=== PATIENT | female | born 1965 | race African-American/Black ===

== ENCOUNTER 2017-07-04 20:22 | Emergency (ER) | payer BC ==
[2017-07-04 22:00] LABS: HEMATOCRIT 25.8 % (36.0-48.0); HEMOGLOBIN 8.2 g/dL (12-16); MCH 25.2 pg (26.0-34.0); MCHC 31.8 g/dL (31.0-37.0); MCV 79.1 fL (80.0-100.0); MEAN PLATELET VOLUME 9.3 fL (7.4-10.4); PLATELET COUNT 259 10x3/uL (130-400); RBC 3.26 10x6/uL (4.00-5.40); RDW 17.3 % (11.5-14.5); WBC 49.1 10x3/uL (4.8-10.8)
[2017-07-04 22:13] LABS: ALBUMIN 3.3 g/dL (3.4-5.0); ALKALINE PHOSPHATASE 260 U/L (46-116); ALT (SGPT) 62 U/L (10-68); BILIRUBIN - TOTAL 0.32 mg/dL (0.2-1.3); CALC OSMOLALITY 278 mosm/kg (275-300); CALCIUM 9.8 mg/dL (8.5-10.1); CARBON DIOXIDE 26.4 mmol/L (21.0-32.0); CHLORIDE - SERUM 100 mmol/L (98-107); CREATININE - SERUM 0.8 mg/dL (0.6-1.3); GLUCOSE 208 mg/dL (74-106); POTASSIUM - SERUM 3.3 mmol/L (3.5-5.1); PROTEIN - SERUM 7.2 g/dL (6.4-8.2); SODIUM 137 mmol/L (136-145); UREA NITROGEN 10 mg/dL (7-18); eGFR NON AFRICAN AMERICAN 79 mL/min (90-120)
[2017-07-04 22:23] LABS: BASOPHILS 3 % (0-2); LYMPHOCYTES 13 % (15-50); MONOCYTES 5 % (2-11); NEUTROPHILS 75 % (40-80); PLATELET ESTIMATE NORMAL
[2017-07-05 00:06] LABS: CKMB 0.3 U/L (0.0-3.6); CREATINE KINASE 49 UL (21-215); PRO BNP 171 pg/mL (0-125); TROPONIN-I < 0.017 ng/mL (0.000-0.060)
[2017-07-05 00:20] LABS: APPEARANCE CLEAR (CLEAR); BILIRUBIN NEGATIVE (NEGATIVE); COLOR YELLOW (YELLOW); GLUCOSE NEGATIVE (NEGATIVE); KETONE NEGATIVE (NEGATIVE); NITRITE NEGATIVE (NEGATIVE); PROTEIN 1+ mg/dL (NEGATIVE); SPECIFIC GRAVITY 1.015 (1.005-1.020); UROBILINOGEN NORMAL (NORMAL)
[2017-07-05 00:21] LABS: WHITE CELLS - URINE 0-5 /hpf (0-5)
[2017-07-05 00:22] LABS: BACTERIA MODERATE /hpf (NONE SEEN); EPITHELIAL CELLS 0-5 /hpf (0-5); MUCUS <1+ /lpf (NONE SEEN); RED CELLS - URINE NONE SEEN /hpf (0-5)
== END 2017-07-05 03:10 | disposition home or self-care (01) ==
LOC: D.ER 20:22
PROVIDERS: Family Medicine
DX: J06.9 Acute upper respiratory infection, unspecified (principal); J20.9 Acute bronchitis, unspecified; N39.0 Urinary tract infection, site not specified; I10 Essential (primary) hypertension; E11.9 Type 2 diabetes mellitus without complications; Z85.3 Personal history of malignant neoplasm of breast

== ENCOUNTER → 2019-07-14 09:51 | Outpatient (CLI) | payer BC, OTHER ==
[~2019-07-14 09:51] MED LIST: JANUVIA100 MG PO; LEXAPRO20 MG PO; LISINOPRIL-HCT1 EAC7 PO; LOTREL 5-20 MG1 CAP PO; OXYBUTYNIN CHLOR5 MG PO
[2019-07-22 06:51] VITALS: BMI 29.6
== END | disposition home or self-care (01) ==
LOC: D.HCCARDIO 09:51
PROVIDERS: ATTEND Internal Medicine Cardiovascular Disease
DX: I20.9 Angina pectoris, unspecified (principal)

== ENCOUNTER 2019-07-22 06:12 | Outpatient (CLI) | payer BC, OTHER ==
[~2019-07-22] VITALS: Ht 175.3 cm; Wt 90.9 kg
--- NOTE | ~2019-07-22 | HEMODYNAMI ---
PATIENT:EDGAR GOMEZ MEDICAL RECORD: [id number] : 63 LOCATION:[facility] ADMISSION DATE: 07/22/19 Generatedon:07/22/20198:22 Patient name: EDGAR GOMEZ Patient #: [id number] SSN: [id number] : 1965 Date of study: 07/22/2019 Page: Of Hemodynamic Procedure Report Patient Data Patient Demographics Procedure consent was obtained First Name: EDGAR Gender: Female Last Name: PATRICIA : 1965 Middle Initial: GAGAN Age: 54 year(s) Patient #: [id number] Race: Black SSN: [id number] Additional ID: [id number] Contact details [address]: [address] [place] [address] State: [place] City: [place] Zip code: [address] Past Medical History Performed procedures and imaging results Date Procedure Procedure Results Comments 07/14/2019 Stress testing Positive->Intermediate ANTERIOR AND with SPECT MPI risk APICAL Allergies Allergen Reaction Date Comments Reported Other allergy 07/22/2019 DEMEROL, FLAGYL, PHENEGREN, REGLAN, SULFA Admission Admission Data Admission Date: 07/22/2019 Admission Time: 6:12 Arrival Date: 07/22/2019 Arrival Time: 0:00 Admit Source: Other Insurance Payor: Private health insurance [facility] #: [id number] Height (in.): 69 BSA: 2.07 (m2) Height (cm.): 175.26 BMI: 29.59 (kg/m2) Weight (lbs.): 200.4 Weight (kg.): 90.9 Lab Results Lab Result Date: 07/22/2019 Lab Result Time: 0:00 Biochemistry Name Units Result Min Max BUN mg/dl 11 --(-*--)-- 7 18 Creatinine mg/dl 0.8 --(-*--)-- 0.6 1.3 eGFR ml/min 90 --(*---)-- 90 120 AM CBC Name Units Result Min Max Hematocrit % 35.8 *-(----)-- 42 54 Hemoglobin g/dl 11.5 *-(----)-- 13.5 17.5 Procedure Procedure Types Cath Procedure Diagnostic Procedure [facility] w/Coronaries Sedation Charges Moderate Sedation up to 15 minutes Procedure Description Procedure Date Procedure Date: 07/22/2019 Procedure Start Time: 8:05 Procedure End Time: 8:18 Procedure Staff Name Function Anshul Smith MD Performing Physician Xi Li RT Monitor Asya Somers RT Scrub Jean Lafleur RN Nurse Adrianne Bennett RN Buffet Manager Indication Chest pain Procedure Data Cath Procedure Fluoroscopy Diagnostic fluoroscopy Total fluoroscopy Time: 1.7 time: 1.7 min min Diagnostic fluoroscopy Total fluoroscopy dose: 340 dose: 340 mGy mGy Contrast Material Contrast Material Type Amount (ml) Isovue 370 41 Entry Location Entry Primary Successful Side Size Upsize Upsize Entry Closure Succes sful Closure Location (Fr) 1 (Fr) 2 (Fr) Remarks Device Remarks Femoral Right 5 Fr Exoseal artery Estimated blood loss: 5 ml Diagnostic catheters Device Type Used For End Catheter Placement MULTIPACK JL 4.0 5Fr Procedure catheter MULTIPACK 3DRC 5Fr Procedure catheter MULTIPACK Pigtail 5 Fr Procedure catheter Procedure Complications No complications Procedure Medications Medication Administration Route Dosage Oxygen etCO2 Nasal cannula 2 l/min Lidocaine 2% added to field 20 Heparin Flush Bag added to field 2 bags (1000units/500ml NS) 0.9% NaCl I.V. 100 ml/hr Versed I.V. 1 mg Fentanyl I.V. 50 mcg Versed I.V. 1 mg Fentanyl I.V. 50 mcg Hemodynamics Rest BSA: 2.07 (m2) HGB: 11.5 (g/dl) O2 Consumption: Estimated: 200.03 (ml/min) O2 Co nsumption indexed: Estimated:96.63 (ml/min/m) Heart Rate: 71 (bpm) Pressure Samples Time Site Value (mmHg) Purpose Heart Use Rate(bpm) 8:14 LV 95/24,35 Snapshot 62 8:15 AO 126/64(88) Pullback 63 8:15 LV 126/1,13 Pullback 63 Gradients Valve Time Site 1 Site 2 Mean SEP/DFP Peak To Heart Use (mmHg) (sec/min) Peak Rate (mmHg) (bpm) Aortic 8:15 LV AO 10 15 0 63 126/1,13 126/64(88) Calculations Valve P-P Mean Valve Index Valve Source Name Gradient Area Flow (cm2) Aortic 0 10 0 10 Snapshots Pre Cath Intra NCS Post Cath Vital Signs Time Heart Resp SPO2 etCO2 NIBP (mmHg) Rhythm Pain Sedation Rate (ipm) (%) (mmHg) Status Level (bpm) 8:03:04 67 17 100 35.4 158/94(135) NSR 0 (11) 10(A) , No pain 8:07:20 60 13 100 0.7 141/80(112) NSR 0 (11) 10(A) , No pain 8:11:32 61 13 99 0.7 129/76(107) NSR 0 (11) 9(A) , No pain 8:15:44 62 13 98 1.5 133/77(90) NSR 0 (11) 9(A) , No pain 8:18:07 64 14 99 1.5 136/71(100) NSR 0 (11) 10(A) , No pain Medications Time Medication Route Dose Verified Delivered Reason Notes Effe ctiveness by by 8:01:01 Heparin Flush added 2 Anshul Anshul used for Bag to bags Luis Smith MD procedure (1000units/500ml field NS) 8:01:13 0.9% NaCl I.V. 100 Anshul Buffie used for ml/hr Luis Bennett graphic pre press trades worker 8:01:21 Oxygen etCO2 2 Anshul Buffie used for Nasal l/min Luis Bennett RN procedure cannula 8:01:55 Lidocaine 2% added 20ml Anshul Anshul for local to vial Luis Smith MD anesthetic field 8:04:19 Versed I.V. 1 mg Anshul Buffie for Luis Bennett RN sedation 8:04:27 Fentanyl I.V. 50 Anshul Buffie for mcg Luis Bennett RN sedation 8:09:15 Versed I.V. 1 mg Anshul Buffie for Luis Bennett RN sedation 8:09:19 Fentanyl I.V. 50 Anshul Buffie for mcg Luis Bennett RN sedation Procedure Log Time Note 7:19:10 Informed consent obtained and on chart 7:19:17 Arrival Date: 07/22/2019 12:00:00 AM 7:20:06 Admit Source: Other 7:20:10 Insurance Payor : Private health insurance 7:20:34 Patient Height : 69 inches 7:20:44 Patient Weight : 200.4 lbs 7:21:02 Diagnostic Cath Status : Elective 7:21:24 Indication : Chest pain 7:22:21 Patient allergic to Other allergyDEMEROL, FLAGYL, PHENEGREN, REGLAN, SULFA 7:50:28 Xi Li RT(R) sent for patient. Start room use. 8:01:01 Heparin Flush Bag (1000units/500ml NS) 2 bags added to field was administered by Anshul Smith MD; used for procedure; Verbal order read back and verified. 8:01:10 Lab Result : BUN 11 mg/dl 8::10 Lab Result : Creatinine 0.8 mg/dl 8::10 Lab Result : Hemoglobin 11.5 g/dl 8:01:10 Lab Result : eGFR AM 90 ml/min 8:01:10 Lab Result : Hematocrit 35.8 % 8:01:13 0.9% NaCl 100 ml/hr I.V. was administered by Adrianne Bennett RN; used for procedure; Verbal order read back and verified. 8:01:21 Oxygen 2 l/min etCO2 Nasal cannula was administered by Adrianne Bennett RN; used for procedure; Verbal order read back and verified. 8:01:22 H&P Date Dictated: 07/22/2019 Within 30 days and on chart.. 8:01:23 Pre-procedure instructions explained to patient. 8:01:23 Pre-op teaching completed and patient verbalized understanding. 8:01:40 Time tracking: Regular hours (M-F 7:00 - 5:00) 8:01:45 Plan of Care:Hemodynamics will remain stable., Cardiac rhythm will remain stable., Comfort level will be maintained., Respiratory function will remain adequate., Patient/ family verbilizes understanding of procedure., Procedure tolerated without complication., Recovers from procedure without complications.. 8:01:49 Procedure Status Elective Heart Cath (OP). 8:01:55 Lidocaine 2% 20ml vial added to field was administered by Anshul Smith MD; for local anesthetic; Verbal order read back and verified. 8:01:55 Patient received from Pre/Post Procedure Room to [facility] 2 Alert and oriented. Tansferred to table in Supine position. 8:01:58 Warm blankets applied, and stone hugger turned on for patient comfort. 8:01:58 Correct patient and procedure confirmed by team. 8:01:59 ECG and BP/O2 sat monitors applied to patient. 8:02:01 Vital chart was started 8:02:02 Full Disclosure recording started 8:02:05 Family in patients room. 8:02:07 Patient NPO since Midnight. 8:02:12 Is the patient allergic to Iodine/contrast media? No. 8:02:15 Was the patient premedicated? Yes 8:02:16 Is patient on blood thinner?No 8:02:25 Patient diabetic? Yes. 8:02:27 If diabetic: On Metformin? No 8:02:30 Patient not . Patient is over age 55. 8:02:31 ----Pre-sedation anethsthesia assessment.---- 8:02:33 Previous problem with sedation/anesthesia? No ? 8:02:35 Snore? Yes 8:02:36 Sleep apnea? No 8:02:38 Deviated septum? No 8:02:40 Opens mouth fully? Yes 8:02:41 Sticks out tongue? Yes 8:02:44 Airway obstruction? No ? 8:02:46 Dentures? No ? 8:02:51 Baseline sample Acquired. 8:02:54 Rhythm: sinus rhythm 8:03:00 Pre procedure: right dorsailis pedis pulse 2+ Normal; easily identifiable; not easily obliterated 8:03:02 Patient pain scale 0/10 ?. 8:03:14 IV patent on arrival in Lt subclavian with 0.9% NaCl at KVO. 8:03:18 Lab results completed and on chart. 8:03:28 Stress Test: yes; abnormal APICAL AND ANTERIOR 8:03:37 Risk of Mortality: .1 8:03:44 Risk of blood transfusion: 1.3 8:03:47 Risk of MONIQUE: .2 8:03:51 Right groin area was prepped with chlora-prep and draped in sterile fashion 8:03:52 Alarms reviewed by RZachary N. 8:03:52 Sharps counted by scrub and verified by R.N. 8:03:53 --------ALL STOP TIME OUT------ 8:03:54 Final Timeout: patient, procedure, and site verified with staff and physician. All members of the team are in agreement. 8:03:58 Right groin site verified by team. 8:04:00 Fire Safety Assessment: A--An alcohol-based skin anteseptic being used preoperatively., C--Open oxygen or nitrous oxide is being used., D--An ESU, laser, or fiber-optic light is being used. 8:04:03 Physical assessment completed. ASA score P 2 - A patient with mild systemic disease as per Anshul Smith MD. 8:04:06 1) 90+ Normal kidney functon but urine findings or structural abnormalities or genetic trait point to kidney disease. 8:04:07 Maximum allowable contrast dose (3.7 X eGFR X 0.75)250 ml. 8:04:13 Sedation plan: IV Moderate Sedation Medication:Versed, Fentanyl 8:04:17 Procedure started. 8:04:19 Versed 1 mg I.V. was administered by Adrianne Bennett RN; for sedation; Verbal order read back and verified. 8:04:27 Fentanyl 50 mcg I.V. was administered by Adrianne Bennett RN; for sedation; Verbal order read back and verified. 8:05:51 Local anesthetic to right femoral artery with Lidocaine 2% by Anshul Smith MD.INITIAL ACCESS ONLY 8:06:47 A 5 Fr sheath was inserted into the Right Femoral artery 8:07:38 Use device set Femoral Dx 8:07:39 ACIST Syringe (21365) opened to sterile field. 8:07:40 Bag Decanter (2002S) opened to sterile field. 8:07:41 Medline Cath Pack ([id number]) opened to sterile field. 8:07:42 ACIST Hand Control (35345) opened to sterile field. 8:07:42 ACIST Manifold (48585) opened to sterile field. 8:07:44 DIAGNOSTIC Multipack 5Fr catheter set ([id number]) opened to sterile field. 8:07:46 SHEATH 5FR [place]amo ([id number]) opened to sterile field. 8:07:47 EMERALD Guide Wire (642-401) opened to sterile field. 8:07:53 A MULTIPACK JL 4.0 5Fr catheter was advanced over the wire and used for Procedure. 8:09:15 Versed 1 mg I.V. was administered by Adrianne Bennett RN; for sedation; Verbal order read back and verified. 8:09:19 Fentanyl 50 mcg I.V. was administered by Adrianne Bennett RN; for sedation; Verbal order read back and verified. 8:10:18 LCA angiography performed. 8:11:16 Catheter exchanged over wire. 8:11:55 A MULTIPACK 3DRC 5Fr catheter was advanced over the wire and used for Procedure. 8:12:55 RCA angiography performed. 8:13:06 Catheter exchanged over wire. 8:13:43 A MULTIPACK Pigtail 5 Fr catheter was advanced over the wire and used for Procedure. 8:14:14 LV gram done using TABARES 8:14:18 Injector settings: Ml/sec: 5, Volume: 10, 8:14:21 LV hemodynamics recorded. 8:14:33 EF : 35 % 8:15:43 Catheter removed. 8:16:01 EXOSEAL 5Fr (EX500) opened to sterile field. 8:16:11 Sheath removed intact; hemostasis achieved with Exoseal to the Right Femoral artery. 8:16:38 Fluoroscopy time 01.70 minutes. 8:16:43 Fluoroscopy dose: 340 mGy 8:16:43 Flurop Dose total: 340 8:16:49 Dose Area Product 42666 mGy/cm. 8:16:54 Contrast amount:Isovue 370 41ml. 8:16:56 Maximum allowable dose exceeded? No. 8:16:57 Sharps counted by scrub and verified by R.N. 8:17:02 Procedure ended.(Physican Out) 8:17:25 Post-op/insertion site Right Femoral artery dressed using a 4 x 4 and Tegaderm. 8:17:29 Post right femoral artery:stable, soft, clean and dry 8:17:32 Post Procedure Pulses reassessed and unchanged 8:17:35 Post procedure: right dorsailis pedis pulse 2+ Normal; easily identifiable; not easily obliterated. 8:17:39 Post-procedure physical assessment completed. ASA score P 2 - A patient with mild systemic disease as per Anshul Smith MD. 8:17:41 Post procedure rhythm: unchanged. 8:17:44 Estimated blood loss: 5 ml 8:17:46 Post procedure instruction explained to patient.Patient verbalizes understanding. 8:17:46 Patient needs reinforcement of post procedure teaching. 8:17:56 Procedure type changed to Cath procedure, Diagnostic procedure, LHC, [facility] w/Coronaries, Sedation Charges, Moderate Sedation up to 15 minutes 8:18:02 Procedure Complication : No complications 8:18:07 [facility] Findings: mild to moderate CAD (<70%) 8:18:32 Procedure and supply charges have been captured, reviewed, submitted and are correct. 8:18:35 Operative report dictated upon procedure completion. 8:18:36 See physician's report for complete and final results. 8:18:38 Report given to Pre/Post Procedure Room. 8:18:40 Patient transfered to Pre/Post Procedure Room with Stretcher. 8:18:45 Procedure ended. 8:18:45 Full Disclosure recording stopped 8:20:58 End room use (Document Last) 8:21:12 End room use (Document Last) 8:21:40 End room use (Document Last) 8:22:05 Vital chart was stopped Device Usage Item Name Manufacture Quantity Catalog Hospital Part Current Minimal L ot# / Number Charge Number Stock Stock Serial# Code ACIST Acist 1 22582 [id number] 532845 130727 20 Syringe Medical (39316) Systems Inc Bag Microtek 1 2001S 305461 90047 051689 5 Decanter Medical Inc. () Medline Medline 1 [id number] 980869 48956 791361 5 Cath Pack ([id number]) ACIST Hand Acist 1 80816 394057 305012 969057 5 Control Medical (35088) Systems Inc ACIST Acist 1 00130 965847 060120 555211 5 Manifold Medical (93278) Systems Inc DIAGNOSTIC Cardinal 1 CQ1309 230942 34970 175438 30 Multipack Health 5Fr catheter set (TH6196) SHEATH 5FR Terumo 1 NJO649 150232 385063 361900 5 [place] (ETN614) EMERALD Cardinal 1 502-455 828947 449480 601558 5 Guide Wire Health (502-455) MULTIPACK Cardinal 1 541750 5 JL 4.0 5Fr Health catheter MULTIPACK Cardinal 1 772366 5 3DRC 5Fr Health catheter MULTIPACK Cardinal 1 [id number] 5 Pigtail 5 Health Fr catheter EXOSEAL 5Fr Cardinal 1 EX500 154555 108970 010361 10 (EX500) Health Signature Audit Nitro Stage Time Signature Unsigned Intra-Procedure 07/22/2019 Xi Li 8:21:12 AM RT(R) Intra-Procedure 07/22/2019 Adrianne Bennett RN 8:21:41 AM Intra-Procedure 07/22/2019 Anshul Smith MD 8:22:03 AM Signatures Performing Physician : Signature : Anshul Smith MD Date : Time : Monitor : Xi Li Signature : RT Date : Time : Nurse : Jean Lafleur RN Signature : Date : Time : [address] [place] [address]
[2019-07-22] MEDS ORDERED: JANUVIA100 MG PO (06:32)
[2019-07-22] MEDS ORDERED: LISINOPRIL-HCT1 EAC7 PO (06:32)
[2019-07-22] MEDS ORDERED: OXYBUTYNIN CHLOR5 MG PO (06:33)
[2019-07-22] MEDS ORDERED: LOTREL 5-20 MG1 CAP PO (06:33)
[2019-07-22] MEDS ORDERED: LEXAPRO20 MG PO (06:34)
[2019-07-22 06:51] VITALS: BP 194/80; Ht 175.3 cm; Wt 90.9 kg
[2019-07-22 07:34] LABS: ALT (SGPT) 24 U/L (10-68); CALC OSMOLALITY 282 mosm/kg (275-300); CALCIUM 9.2 mg/dL (8.5-10.1); CARBON DIOXIDE 30.1 mmol/L (21.0-32.0); CHLORIDE - SERUM 101 mmol/L (98-107); CHOL - HDL RATIO 3.6 ratio (2.3-4.1); CHOLESTEROL, TOTAL 240 mg/dL (0-200); CREATININE - SERUM 0.8 mg/dL (0.6-1.3); GLUCOSE 210 mg/dL (74-106); HDL CHOLESTEROL 66 mg/dL (32-96); LDL CHOLESTEROL 152 mg/dL (0-100); LDL-HDL RATIO 2.3 ratio (1.5-3.5); POTASSIUM - SERUM 3.6 mmol/L (3.5-5.1); SODIUM 139 mmol/L (136-145); TRIGLYCERIDE 114 mg/dL (30-200); UREA NITROGEN 11 mg/dL (7-18); eGFR NON AFRICAN AMERICAN 79 mL/min (90-120)
[2019-07-22 07:35] LABS: BASOPHILS 0.1 % (0-2); EOSINOPHILS 1.4 % (0-7); HEMATOCRIT 35.8 % (36.0-48.0); HEMOGLOBIN 11.5 g/dL (12-16); IMMATURE GRANULOCYTES 0.4 % (0-5); MCH 24.8 pg (26.0-34.0); MCHC 32.1 g/dL (31.0-37.0); MCV 77.2 fL (80.0-100.0); MEAN PLATELET VOLUME 10.5 fL (7.4-10.4); MONOCYTES 6.5 % (2-11); NEUTROPHILS 64.6 % (40-80); PLATELET COUNT 225 10x3/uL (130-400); RBC 4.64 10x6/uL (4.00-5.40); WBC 8.1 10x3/uL (4.8-10.8)
--- NOTE | 2019-07-22 08:30 | NUR ---
PATIENT ARRIVED TO ROOM 6, PLACED ON CM. VSS ON ROOM AIR. RIGHT GROIN DRESSING IS CDI, NO S/S OF BLEEDING OR HEMATOMA.
--- NOTE | 2019-07-22 08:45 | NUR ---
PATIENT RESTING, VSS ON ROOM AIR. RIGHT GROIN DRESSING IS CDI, NO S/S OF BLEEDING OR HEMATOMA. NO C/O PAIN, NUMBNESS, OR TINGLING. NO N/V. FRIEND PRESENT AT BEDSIDE, PHYSICIAN PRESENT AT BEDSIDE TO UPDATE PATIENT.
--- NOTE | 2019-07-22 09:15 | NUR ---
PATIENT RESTING, VSS ON ROOM AIR. RIGHT GROIN DRESSING IS CDI, NO S/S OF BLEEDING OR HEMATOMA. NO C/O PAIN, NUMBNESS, OR TINGLING. NO N/V. FRIEND PRESENT AT BEDSIDE.
--- NOTE | 2019-07-22 09:30 | NUR ---
HEAD OF BED ELEVATED TO 30 DEGREES. RIGHT GROIN DRESSING IS CDI, NO S/S OF BLEEDING OR HEMATOMA.
--- NOTE | 2019-07-22 10:00 | NUR ---
RIGHT GROIN DRESSING IS CDI, NO S/S OF BLEEDING OR HEMATOMA. NO C/O PAIN, NUMBNESS, OR TINGLING. VSS ON ROOM AIR. HEAD OF BED AT 90 DEGREES, PATIENT EATING TURKEY SANDWICH AND DRINKING COLA, NO N/V. WILL CONTINUE TO MONITOR.
--- NOTE | 2019-07-22 10:15 | NUR ---
PORT DE-ACCESSED, DRESSING APPLIED IS CDI. VSS ON ROOM AIR. RIGHT GROIN DRESSING IS CDI, NO S/S OF BLEEDING OR HEMATOMA. NO C/O PAIN,NUMBNESS, OR TINGLING. WRITTEN AND VERBAL DISCHARGE INSTRUCTIONS GIVEN TO PATIENT AND FRIEND, BOTH VOICE UNDERSTANDING. PATIENT DISCONNECTED FROM MONITORS TO GET DRESSED. PATIENT VOIDED WITHOUT DIFFICULTY.
--- NOTE | 2019-07-22 10:30 | NUR ---
PATIENT TRANSPORTED VIA WHEELCHAIR TO CAR WITH FRIEND DRIVING, ALL BELONGINGS WITH PATIENT.
== END 2019-07-22 10:30 | disposition home or self-care (01) ==
LOC: D.CATH 06:12
PROVIDERS: ATTEND Internal Medicine Cardiovascular Disease
DX: I20.9 Angina pectoris, unspecified (principal); R94.39 Abnormal result of other cardiovascular function study; R07.9 Chest pain, unspecified; I10 Essential (primary) hypertension; E11.9 Type 2 diabetes mellitus without complications